=== PATIENT | female | born 1975 | race Caucasian/White ===

== ENCOUNTER → 2016-11-12 | Outpatient (CLI) | payer BC ==
[~2016-11-12] MED LIST: AMIT25TA PO; CLON-364 PO; CYCL-259 PO; DICL75TA2 PO; ENOX40SY4 SQ; HYDR-3307 PO; HYDR2TAB13 PO; IBUP800T PO; LEVO125T5 PO; LEVO75TA5 PO; MORP15TA39 PO; MORP30CA15 PO; MORP30TA3 PO; NAPR500T3 PO; OXYC-229 PO; OXYC10TA6 PO; OXYC5TAB3 PO; POLY17PO5 PO; PREG75CA PO; SENN1TAB7 PO; SUMA25TA4 PO; ZOLP10TA5 PO
== END | disposition home or self-care (01) ==
LOC: CARD 12:01
PROVIDERS: ATTEND Physician Assistant Medical
DX: R09.02 Hypoxemia (principal); R06.09 Other forms of dyspnea; Z99.81 Dependence on supplemental oxygen
CPT/HCPCS: 94620